=== PATIENT | female | born 2005 | race Asian ===

== ENCOUNTER 2025-09-05 11:44 | Observation (INO) ==
--- NOTE | 2025-09-05 12:03 | Emergency Department Note ---
History of Present Illness General Chief Complaint: Back Injury/Pain Stated Complaint: Back Injury/Pain Time Seen by Provider: 09/05/25 11:46 History of Present Illness Provider Complaint: back pain Onset (ago): hour(s) (844) 3 Duration: constant Location: lumbar spine Quality: + sharp, + dull, + crushing, + aching, + spasming and + throbbing Radiation: none Relieved By: + immobilization and + supine Exacerbated By: + movement Context: + other (Patient reports her back pain started after she sneezed); no turning/twisting, no bending, no fall, no trauma, no syncope, no history of kidney stones or no IV drug use Associated symptoms: no weakness, no fatigue, no syncope, no numbness, no difficulty walking, no loss of sensation in lower extremities, no increased urinary urgency, no increased urinary frequency, no fecal incontinence, no a change in bowel habits, no chills, no abdominal pain, no hematuria or no parasthesias Related Data Patient Confirmed : No Home Medications Medication Instructions Recorded Confirmed Type verapamil 40 mg tablet 40 mg PO DIRECTED PRN Increased 11/13/22 09/05/25 History Heart Rate cyclobenzaprine 5 mg tablet 5 mg PO TID PRN muscle spasm #30 09/05/25 Rx tabs ketorolac 10 mg tablet 10 mg PO BID PRN pain #10 tabs 09/05/25 Rx Allergies Allergy/AdvReac Type Severity Reaction Status Date / Time No Known Allergies Allergy Verified 11/13/22 21:06 Past Med/Surg History Problem List (Updated 09/05/25 @ 19:20 by Augie Alvarez DO) Low back pain Inability to walk Back pain (Acute) Medical History SVT (supraventricular tachycardia) Social History Smoking Status: Never smoker Preferred Language: Azeri Feels Safe at Home: Yes Physical Exam Vital Signs Vital Signs - 24 hr 09/05/25 11:33 09/05/25 13:35 09/05/25 16:05 Temperature 37.1 C 36.7 C Temperature Source Oral Oral Pulse Rate 72 69 Pulse Rate [Right Finger] 115 H Respiratory Rate 16 15 18 Respiratory Effort / Characteristics Non-Labored Non-Labored Spontaneous Respiratory Depth Normal Normal Respiratory Pattern Regular Regular Blood Pressure 122/78 116/74 Blood Pressure [Left Arm] 124/76 Blood Pressure Mean 92 Blood Pressure Mean [Left Arm] 92 Blood Pressure Position Lying Pulse Oximetry 100 100 99 Oxygen Delivery Method Room Air Room Air Sepsis Recent Fever Within 48 Hours No Sepsis New/Unexplained Change in Mental Status No Sepsis Action Taken by Nursing No Action Required 09/05/25 17:54 Temperature Temperature Source Pulse Rate Pulse Rate [Right Finger] 95 H Respiratory Rate 17 Respiratory Effort / Characteristics Non-Labored Spontaneous Respiratory Depth Normal Respiratory Pattern Regular Blood Pressure Blood Pressure [Left Arm] 124/84 Blood Pressure Mean Blood Pressure Mean [Left Arm] 97 Blood Pressure Position Pulse Oximetry 99 Oxygen Delivery Method Room Air Sepsis Recent Fever Within 48 Hours Sepsis New/Unexplained Change in Mental Status Sepsis Action Taken by Nursing Physical Exam GENERAL: oriented to person, place, and time. appears well-developed and well- nourished. HENT: Exam performed. - Head: Normocephalic and atraumatic. EYES: Conjunctivae and EOM are normal. Right eye exhibits no discharge. Left eye exhibits no discharge. No scleral icterus. NECK: Normal range of motion. Neck supple. No JVD present. CV: Normal rate, regular rhythm, normal heart sounds and intact distal pulses. There is no peripheral edema. Palpable radial pulses bue. PULM/CHEST: Effort normal and breath sounds normal. No respiratory distress. No stridor. no wheezes. no rales. ABD: The abdomen is soft. There is no tenderness. MUSC: No C, T, or L-spine tenderness. Palpable DP and PT pulses bilateral extremities. NEURO: Motor and sensation grossly intact. No saddle anesthesia or paresthesias. Strength 5/5 bilateral upper and lower extremities. SKIN: Skin is warm and dry. He is not diaphoretic. PSYCH: normal mood and affect. Behavior is normal. Judgment and thought content normal. Course Course 1146: The patient was evaluated in room D3. A complete history and physical exam was performed 1320: Vital signs stable. X-ray unremarkable. Patient denies any falls or traumas. No urinary incontinence or retention. No need for any further imaging. On reevaluation patient states that she is still having pain. Patient was ordered Tylenol, Toradol, and Flexeril. Patient will be discharged follow- up with PCP. Patient is requesting that she have at least 2 weeks off from school so she can deal with her backache. I did oblige patient to write her a school note for 2 weeks. DISCHARGE - Plan of care discussed with patient and questions answered. The patient was given both verbal and printed discharge instructions. The patient verbalized understanding and ability to comply. The patient is to seek outpatient follow up as noted in the discharge instructions. The patient verbalized understanding and ability to comply. The patient is discharged in stable condition. The patient was instructed to return for worsening symptoms. 1403: Informed by nursing that the patient is requesting to be admitted to the hospital. She states that her pain is too much. Patient states that she cannot sit in a wheelchair to be discharged home. Patient states she took an ambulance here. Patient is requesting to be admitted to the hospital overnight. I explained to the patient that there are no medical necessity to admit the patient. Patient is then requesting to have a ambulance take her back home as she states she cannot sit in a wheelchair or in a car. milk processing worker is discussing with the patient about options to get her home. 1421: Patient met with social media content manager Maria Victoria. Patient refusing to leave broke down crying stating she cannot sit in a chair and needs to be admitted to the hospital. Patient was explained that she cannot be transported home via an ambulance as she has requested and she began becoming more upset. Patient be moved to the C pod for further workup. 1826: Vital signs stable. Labs are unremarkable. Imaging shows mild disc bulge L4-L5 without neuroforaminal or spinal canal stenosis, no acute findings of the lumbar spine. I went and conveyed the patient's results to her and her friend at bedside. Patient is requesting a stretcher for home and for an ambulance to transport her home. Case management again met with the patient and explained to her that this would not be able to be arranged at this time. Patient states she does not feel safe going home. Friend at bedside states that they do not feel safe taking care of the patient at their home. She is refusing to sit up and states she would like to be admitted to the hospital for pain control until she can sit up. Patient states she is having anxiety issues. Patient was offered a psychiatric evaluation but states she is not sure if that is necessary at this time. Will contact hospitalist for possible admission. 1832: Discussed patient's case with [facility] hospitalist Dr. Alvarez who states he will evaluate the patient for admission. Administered Medications Discontinued Medications Acetaminophen (Acetaminophen 325 Mg Tab) 650 mg PO NOW STA Stop: 09/05/25 12:43 Last Admin: 09/05/25 13:15 Dose: 650 mg Documented By: pj Cyclobenzaprine HCl (Cyclobenzaprine Hcl 5 Mg Tab) 5 mg PO NOW STA Stop: 09/05/25 13:18 Last Admin: 09/05/25 13:29 Dose: 5 mg Documented By: pj Ketorolac Tromethamine (Ketorolac Tromethamine 60 Mg/2 Ml Vial) 15 mg IM NOW STA Stop: 09/05/25 13:18 Last Admin: 09/05/25 13:29 Dose: 15 mg Documented By: pj Ketorolac Tromethamine (Ketorolac Tromethamine 15 Mg/Ml Vial) 15 mg IV NOW STA Stop: 09/05/25 14:21 Last Admin: 09/05/25 15:19 Dose: Not Given Documented By: SANJAY Ketorolac Tromethamine (Ketorolac Tromethamine 15 Mg/Ml Vial) 15 mg IV NOW STA Stop: 09/05/25 14:57 Last Admin: 09/05/25 15:17 Dose: 15 mg Documented By: SANJAY Medical Decision Making Laboratory Data Attestation: I reviewed the patient's lab results. 09/05/25 14:36 09/05/25 14:36 Lab Results 09/05/25 Range/Units 14:36 WBC 5.23 (4.8-10.8) K/ul RBC 4.70 (4.20-5.40) M/uL Hgb 14.3 (12.0-16.0) g/dL Hct 41.2 (37.0-47.0) % MCV 87.7 (80.0-100.0) fL MCH 30.4 (25.0-34.0) pg MCHC 34.7 (32.0-36.0) g/dL RDW Std Deviation 39.2 (36.4-46.3) fL RDW Coeff of Fabby 12.1 (11.5-14.5) % Plt Count 172 (130-400) K/uL MPV 10.1 (9.4-12.4) fL Immature Gran % (Auto) 0.2 % Neut % (Auto) 76.7 % Lymph % (Auto) 14.1 % Stafford % (Auto) 7.1 % Eos % (Auto) 1.5 % Baso % (Auto) 0.4 % Neut # (Auto) 4.01 (1.40-6.50) K/uL Lymph # (Auto) 0.74 L (1.20-3.40) K/uL Stafford # (Auto) 0.37 (0.11-0.59) K/uL Eos # (Auto) 0.08 (0.00-0.50) K/uL Baso # (Auto) 0.02 (0.00-0.20) K/uL Immature Gran # (Auto) 0.01 (0.01-0.20) K/uL Sodium 138 (136-145) mmol/L Potassium 4.0 (3.5-5.1) mmol/L Chloride 105 (98-107) mmol/L Carbon Dioxide 27 (21-32) mmol/L Anion Gap 6 (3-11) BUN 10 (6-23) mg/dl Creatinine 0.56 L (0.6-1.2) mg/dl Est Cr Clr Drug Dosing 204.5 ml/min eGFR 133.08 BUN/Creatinine Ratio 17.9 (10-20) Glucose 116 H (70-99(Fasting)) mg/dl Calcium 8.9 (8.6-10.3) mg/dl Imaging Data Radiologist's Impression: Lumbar Spine X-Ray 09/05/25 11:58 XR lumbar spine min 4V routine HISTORY: 20 years-old Female back pain acute low back pain COMPARISON: None TECHNIQUE: 5 views of the lumbar spine FINDINGS: Developmental incomplete bony fusion involves the posterior elements of L5. No acute fracture, subluxation, spondylolysis or spondylolisthesis. The disc spaces appear generally well preserved. Unremarkable soft tissues. IMPRESSION: No acute osseous abnormality. ACT 112: Negative or not required by law. The above report was generated using voice recognition software. It may contain grammatical, syntax or spelling errors. Electronically signed by: Travis Turcios M.D. 09/05/2025 1:07 PM Lumbar Spine MRI 09/05/25 14:19 Lumbar spine MRI without IV contrast History: Back pain Comparison: None Technique: Sagittal T1-weighted, sagittal STIR, 3D volumetric axial and sagittal reconstructed T2-weighted images of the lumbar spine were obtained without intravenous contrast. Findings: There are 5 lumbar-type vertebrae assumed for the purposes of this dictation. The tip of the conus medullaris is at L1. Normal lumbar vertebral alignment. Mild degenerative disc height loss and loss of T2 signal at the L4-5 disc. . Normal marrow signal. On a level by level basis: T12-L1: No spinal canal or neuroforaminal stenosis. L1-2: No spinal canal or neuroforaminal stenosis. L2-3: No spinal canal or neuroforaminal stenosis. L3-4: No spinal canal or neuroforaminal stenosis. L4-5: Small posterior central disc bulge. No spinal canal or neuroforaminal stenosis. L5-S1: No spinal canal or neuroforaminal stenosis. Paraspinous tissues are within normal limits. Note: The following findings are common in the absence of low back pain and while we report their presence, they must be interpreted with caution and in the context of the clinical situation. (Reference -Biggvik et al, Spine 2001) Findings (prevalence in patients without low back pain) Disc degeneration (decreased T2 signal, height loss, bulge) (91%) Disc T2 - signal loss (83%) Disc height loss (56%) Disc bulge (64%) Disc protrusion (32%) Annular tear (38%). Impression: No acute finding of the lumbar spine. Mild disc height loss and loss of T2 signal with small posterior central disc bulge at L4-5 without neuroforaminal or spinal canal stenosis. Electronically signed by Beny Vidal 09-05-2025 5:57 PM [facility] Narrative 1146: The patient was evaluated in room D3. A complete history and physical exam was performed 1320: Vital signs stable. X-ray unremarkable. Patient denies any falls or traumas. No urinary incontinence or retention. No need for any further imaging. On reevaluation patient states that she is still having pain. Patient was ordered Tylenol, Toradol, and Flexeril. Patient will be discharged follow- up with PCP. Patient is requesting that she have at least 2 weeks off from school so she can deal with her backache. I did oblige patient to write her a school note for 2 weeks. DISCHARGE - Plan of care discussed with patient and questions answered. The patient was given both verbal and printed discharge instructions. The patient verbalized understanding and ability to comply. The patient is to seek outpatient follow up as noted in the discharge instructions. The patient verbalized understanding and ability to comply. The patient is discharged in stable condition. The patient was instructed to return for worsening symptoms. 1403: Informed by nursing that the patient is requesting to be admitted to the hospital. She states that her pain is too much. Patient states that she cannot sit in a wheelchair to be discharged home. Patient states she took an ambulance here. Patient is requesting to be admitted to the hospital overnight. I explained to the patient that there are no medical necessity to admit the patient. Patient is then requesting to have a ambulance take her back home as she states she cannot sit in a wheelchair or in a car. milk processing worker is discussing with the patient about options to get her home. 1421: Patient met with social media content manager Maria Victoria. Patient refusing to leave broke down crying stating she cannot sit in a chair and needs to be admitted to the hospital. Patient was explained that she cannot be transported home via an ambulance as she has requested and she began becoming more upset. Patient be moved to the C pod for further workup. 1826: Vital signs stable. Labs are unremarkable. Imaging shows mild disc bulge L4-L5 without neuroforaminal or spinal canal stenosis, no acute findings of the lumbar spine. I went and conveyed the patient's results to her and her friend at bedside. Patient is requesting a stretcher for home and for an ambulance to transport her home. Case management again met with the patient and explained to her that this would not be able to be arranged at this time. Patient states she does not feel safe going home. Friend at bedside states that they do not feel safe taking care of the patient at their home. She is refusing to sit up and states she would like to be admitted to the hospital for pain control until she can sit up. Patient states she is having anxiety issues. Patient was offered a psychiatric evaluation but states she is not sure if that is necessary at this time. Will contact hospitalist for possible admission. 1832: Discussed patient's case with [facility] hospitalist Dr. Alvarez who states he will evaluate the patient for admission. Impression & Plan Back pain Discharge Plan Visit Data Chief Complaint: Back Injury/Pain Stated Complaint: Back Injury/Pain ED Provider: Myke Kruse Discharge Problem: Back pain Patient Disposition: Being Evaluated by Hospitalist Condition: Fair Discharge Instructions Mine/Other Patient Handouts: ED Back Exercises, Lumbar Interventions: ED Discharge Assessment Last Done: 09/05/25 13:35 Forms Stand Alone Forms: Work/School Release (ED), [facility], Important Visit Information Prescriptions Prescriptions: New ketorolac 10 mg tablet 10 mg PO BID PRN (Reason: pain) Qty: 10 0RF cyclobenzaprine 5 mg tablet 5 mg PO TID PRN (Reason: muscle spasm) Qty: 30 0RF No Action verapamil 40 mg Tablet 40 mg PO DIRECTED PRN (Reason: Increased Heart Rate) Patient Comments: 09/05- no fill history unable to verify Referrals Referrals: [facility] [Primary Care Provider] - (Follow-up in 1-7 days.) Discharge Problem: Back pain Qualifiers: Back pain location: low back pain Chronicity: acute Back pain laterality: u nspecified Sciatica presence: unspecified whether sciatica present Qualified Code(s): M54.50 - Low back pain, unspecified
--- NOTE | 2025-09-05 13:08 | XRay Report ---
XR lumbar spine min 4V routine HISTORY: 20 years-old Female back pain acute low back pain COMPARISON: None TECHNIQUE: 5 views of the lumbar spine FINDINGS: Developmental incomplete bony fusion involves the posterior elements of L5. No acute fracture, sublux ation, spondylolysis or spondylolisthesis. The disc spaces appear generally well preserved. Unremarka ble soft tissues. IMPRESSION: No acute osseous abnormality. ACT 112: Negative or not required by law. The above report was generated using voice recognition software. It may contain grammatical, syntax o r spelling errors. Electronically signed by: Travis Turcios M.D. 09/05/2025 1:07 PM
[2025-09-05] MEDS: ACETAMINOPHEN 325 MG TAB PO STA (13:15)
[2025-09-05] MEDS: CYCLOBENZAPRINE HCL 5 MG TAB PO STA (13:29)
[2025-09-05] MEDS: KETOROLAC TROMETHAMINE 60 MG/2 ML VIAL IM STA (13:29)
[2025-09-05 14:51] LABS: Hematocrit (blood only) 41.2 % (37.0-47.0); Hemoglobin 14.3 g/dL (12.0-16.0); Immature Granulocytes # (auto) 0.01 K/uL (0.01-0.20); Immature Granulocytes % (auto) 0.2 %; Mean Corpuscular Hemoglobin 30.4 pg (25.0-34.0); Mean Corpuscular Volume 87.7 fL (80.0-100.0); Platelet Count 172 K/uL (130-400); RDW Standard Deviation 39.2 fL (36.4-46.3); Red Blood Count 4.70 M/uL (4.20-5.40); White Blood Count 5.23 K/ul (4.8-10.8)
[2025-09-05 15:17] LABS: Anion Gap 6.0 (3-11); Blood Urea Nitrogen 10.0 mg/dl (6-23); Calcium 8.9 mg/dl (8.6-10.3); Carbon Dioxide 27.0 mmol/L (21-32); Chloride 105.0 mmol/L (98-107); Creatinine Clr Calc Pharmacy 204.5 ml/min; Glucose 116.0 mg/dl (70-99(Fasting)); Potassium 4.0 mmol/L (3.5-5.1); Sodium 138.0 mmol/L (136-145)
[2025-09-05] MEDS: KETOROLAC TROMETHAMINE 15 MG/ML VIAL IV STA ×2 (15:17→15:19)
--- NOTE | 2025-09-05 17:57 | Magnetic Resonance Report ---
Lumbar spine MRI without IV contrast History: Back pain Comparison: None Technique: Sagittal T1-weighted, sagittal STIR, 3D volumetric axial and sagittal reconstructed T2-weighted images of the lumbar spine were obtained without intravenous contrast. Findings: There are 5 lumbar-type vertebrae assumed for the purposes of this dictation. The tip of the conus medullaris is at L1. Normal lumbar vertebral alignment. Mild degenerative disc height loss and loss of T2 signal at the L4-5 disc. . Normal marrow signal. On a level by level basis: T12-L1: No spinal canal or neuroforaminal stenosis. L1-2: No spinal canal or neuroforaminal stenosis. L2-3: No spinal canal or neuroforaminal stenosis. L3-4: No spinal canal or neuroforaminal stenosis. L4-5: Small posterior central disc bulge. No spinal canal or neuroforaminal stenosis. L5-S1: No spinal canal or neuroforaminal stenosis. Paraspinous tissues are within normal limits. Note: The following findings are common in the absence of low back pain and while we report their presence, they must be interpreted with caution and in the context of the clinical situation. (Reference -Jarvik et al, Spine 2001) Findings (prevalence in patients without low back pain) Disc degeneration (decreased T2 signal, height loss, bulge) (91%) Disc T2 - signal loss (83%) Disc height loss (56%) Disc bulge (64%) Disc protrusion (32%) Annular tear (38%). Impression: No acute finding of the lumbar spine. Mild disc height loss and loss of T2 signal with small posterior central disc bulge at L4-5 without neuroforaminal or spinal canal stenosis. Electronically signed by Beny Vidal 09-05-2025 5:57 PM
--- NOTE | 2025-09-05 19:19 | History & Physical Report ---
Date of Service September 05, 2025 Assessment & Plan (1) Inability to walk: (2) Low back pain: Plan In summary this is a 20-year-old female who presents with low back pain after sneezing earlier on the same day of presentation. She refuses to attempt ambulation due to significant discomfort involving her low back describing it as a large amount of "pressure".From a neurological standpoint there are no additional injuries or consequences of her event earlier today. The patient is relatively argumentative with regard to her plan of care, demanding certain things be done or not done. Unfortunately, given the patient's inability to attempt ambulation given this reported "pressure", she cannot be safely discharged from the emergency department. Subsequently, she will be admitted for continued care as detailed below. Start acetaminophen 1000 mg p.o. every 8 hours Start Toradol 30 mg IV every 6 hours, to be continued through 09/09 or upon discharge, whichever occurs first Start cyclobenzaprine 5 mg p.o. as needed PT/OT consulted History of Present Illness Chief Complaint: Low back pain Primary Care Provider: [facility] Ms. Mantilla is a 20-year-old female without current chronic medical conditions who presented to the ED after sneezing resulting in sudden onset back pain. This was not associated with any paresthesia, loss of bowel or bladder continence, syncope, chest pain, palpitations, or any other symptoms. She reports inability to ambulate due to a large amount of "pressure" in the low back that occurs when being "vertical". Allergies Allergy/AdvReac Type Severity Reaction Status Date / Time No Known Allergies Allergy Verified 11/13/22 21:06 Home Medications Medication Instructions Recorded Confirmed Type verapamil 40 mg tablet 40 mg PO DIRECTED PRN Increased 11/13/22 09/05/25 History Heart Rate cyclobenzaprine 5 mg tablet 5 mg PO TID PRN muscle spasm #30 09/05/25 Rx tabs ketorolac 10 mg tablet 10 mg PO BID PRN pain #10 tabs 09/05/25 Rx Past Med/Surg History Problem List (Updated 09/05/25 @ 19:20 by Augie Alvarez DO) Low back pain Inability to walk Back pain (Acute) Medical History SVT (supraventricular tachycardia) Social History Smoking Status: Never smoker Preferred Language: Indonesian Feels Safe at Home: Yes Review of Systems Review of Systems: Review of systems including cardiovascular, pulmonary, musculoskeletal, neurologic, gastrointestinal, genitourinary were unremarkable. Physical Exam Physical Exam: General: Young adult female in no acute distress Vital Signs: Reviewed HEENT: Moist mucous membranes Pulmonary: Symmetric chest wall excursion without restriction Cardiovascular: Regular rate and rhythm with left radial pulse 2+ Genitourinary: There are Musculoskeletal: Very mild reproducible pain in the midline lumbar spine without radiation; surrounding spinal musculature is without hypertonicity, spasticity, significant tenderness with palpation; there is no step-off lesion palpable involving the lumbosacral spine Neurologic: Cranial nerves II through XII grossly intact; straight leg test involving the bilateral lower extremities was unremarkable Results & Data Results & Data Vital Signs (Past 12 Hours) Vital Signs Temp Pulse Pulse Resp BP BP Pulse Ox 09/05/25 17:54 95 H 17 124/84 99 09/05/25 16:05 115 H 18 124/76 99 09/05/25 13:35 36.7 C 69 15 116/74 100 09/05/25 11:33 37.1 C 72 16 122/78 100 O2 Del Method 09/05/25 17:54 Room Air 09/05/25 16:05 Room Air 09/05/25 13:35 Room Air 09/05/25 11:33 Diagnostic Findings Small posterior central disc bulge at L4-L5 without neuroforaminal or spinal canal stenosis Code Status & VTE Plan Code Status Full code PG Care Time/CCT Total # of Minutes Spent Total Time Spent with Patient: Total time spent is greater than 50% in coordination of care (as documented) at patient's floor/unit and/or counseling patient: Coding Level of Care Code 24769 INT INP/OBS CARE 1/40MIN Diagnoses Inability to walk R26.2 Acute right-sided low back pain without sciatica M54.50 Chronicity: acute Back pain laterality: right Sciatica presence: without sciatica (2) Low back pain Chronicity: acute Back pain laterality: right Sciatica presence: without sciatica Qualified Code(s): M54.50 - Low back pain, unspecified
[2025-09-05] MEDS: KETOROLAC 30 MG/ML VIAL IV SCH (21:36)
[2025-09-05] MEDS: CYCLOBENZAPRINE HCL 10 MG TAB PO PRN (21:36)
[2025-09-05] MEDS: ACETAMINOPHEN 500 MG TAB PO SCH (21:36)
[2025-09-05 22:49] VITALS: RESP 16
[2025-09-06 07:03] VITALS: O2SAT 97
[2025-09-06] MEDS: MAGNESIUM SULFATE / D5W 1 GM/100 ML BAG IV SCH (10:38)
[2025-09-06] MEDS: DICLOFENAC SOD 1% GEL 100 GM TUBE EXT SCH (12:54)
[2025-09-06 14:59] VITALS: BP 113/68; PULSE 83; TEMP 98.2
--- NOTE | 2025-09-06 17:49 | Billing Data ---
Date of Service September 06, 2025 Coding Level of Care Code 27394 INP/OBS DISCH >30 MIN
--- NOTE | 2025-09-06 17:49 | Discharge Summary ---
Discharge Summary Date of Service September 06, 2025 Principal Dx & Hospital Course #1 = Principal Diagnosis (1) Low back pain: Plan #lumbosacral strain - history and physical combined with lack of other worrisome findings on labs or diagnostics, make lumbosacral strain the diagnosis both based on how her symptoms and exam fit, and based on the fact that nothing else ominous appears to be at play in spite of a rather extensive workup including lumbar spine MRI - OMT as above; taught stretches that would mimic post isometric muscle relaxation OMT for piriformis - Voltaren gel to right piriformis 4 times daily - encouraged movementpatient was initially fairly adamant that she should just lay stillnoting this happen to her once in the pastin discussion with admitting provider to clarify further, apparently at that time she basically laid in bed for 3 weeksdiscussed gelling phenomenon in depth and repeatedly discussed the importance of movement. - Utilized Valium x 1 and mag sulfate x 4 g IV as muscle relaxants in the hospital, over the course of the day while her symptoms persisted, whenever I followed up in the afternoon she was feeling good enough that she actively asked to be discharged. In discussion she was a little bit worried about moving around without something to hold onto, and after discussion she felt like a walker would provide an adequate safety net. - Safe/stable for home Notes For Next Care Provider Medication Changes From Visit Voltaren gel to right piriformis region, Tylenol or ibuprofen as needed Admission HPI Per Admitting Provider Ms. Mantilla is a 20-year-old female without current chronic medical conditions who presented to the ED after sneezing resulting in sudden onset back pain. This was not associated with any paresthesia, loss of bowel or bladder continence, syncope, chest pain, palpitations, or any other symptoms. She reports inability to ambulate due to a large amount of "pressure" in the low back that occurs when being "vertical". Discharge Exam awake and alertinitially laying very still and fairly anxious about the pain to the point where she would not even move to show me where the pain was, choosing instead to describe it until I noted that I really needed her to show me where she was hurting to better understand what her diagnosis was. Slow antalgic movements but quite capable. In general she is otherwise in no distress. HEENT normocephalic atraumatic mucous membranes moist. Breathing unlabored no accessory muscle use good effort. Skin without rashes pallor or icterus. Musculoskeletal shows muscles in the right piriformis region to be high tone, tender, decreased range of motionLAS and post isometric relaxation done with some improvement. Her right SI joint is tender and reproduces her pain almost exactly. Neuro with no focal deficits no motor weakness, no notable sensory deficits. Skin without rashes pallor or icterus. Updated Medication List Medication Instructions Recorded Confirmed Type verapamil 40 mg tablet 40 mg PO DIRECTED PRN Increased 11/13/22 09/05/25 History Heart Rate diclofenac sodium 1 % topical gel 4 g EXT QID #100 grams 09/06/25 Rx (Voltaren Arthritis Pain) Hospital Stay Data Diagnostic Imagining Performed 09/05/25 14:19 MRI Lumbar Spine [MR lumbar spine wo con] Stat Pending Results Patient Have Any Pending Studies at Discharge: Yes Discharge Instructions Given to Patient (Per Discharging Provider) Back painyour back pain appears entirely due to a musculoskeletal lumbosacral strain. What appears to have happened, as it is often the case, is that your piriformis muscle (the muscle that ties your sacrum to your hip) probably got torqued when you sneezed, and reflexively went into spasm. When our piriformis muscle goes into spasm, this usually creates much more SI joint pain and low back pain then it does buttock pain in the region of the piriformislargely because the way our piriformis ties to our sacrum, whenever it goes into spasm, it we will pull her sacrum over and jam up that SI joint and turned our lumbar spine someand our brain largely perceives that pain "upstream" from the muscle spasm far more acutely than the pain of the spasm itself. That said, the piriformis muscle tightness is generally "the Nelson" of the problemand getting the muscle looser will help you get better faster. - It is usually important to keep moving. Muscles do what is called "gelling"when the muscle is tight, and it is not moving, it just gets tighter and makes it hurt more to move. Even though it hurts to move, do as much as you can and move frequently so that the gelling phenomenon impacts you and slows your recovery as little as possible - dynamic stretching can help loosen this faster as well. As I helped you do earlier, and as I demonstrated this afternoon, when you are laying on your back, pull your right knee to your chest and then move it across your body to the l eft. While holding your leg still, try to rotate your knee back out to the right but do not let it move. Hold it still like this for about 5 seconds of contraction, and then relax the muscle and stretch your knee further to your chest and further to the left across your body. Do about 5 repetitions of this at least twice a day, if not more - use the Voltaren gel (topical diclofenac) across the region of your right piriformis muscle 4 times a day. It will not necessarily help right away, but typically what we find is when people use it 4 times a day, after about 2 or 3 days, it usually starts to help a good deal. I would use this until things are feeling noticeably better - pain medications do not help a lot with this because it is much more of a muscle spasm and torqued joint problem, but you can use Tylenol up to 500 mg up to every 6 hours (2000 mg in a day max), and ibuprofen up to 600 mg every [address]'t drive today due to the potentially sedating effects of the medications you were given today in the hospital Total Time Total Time Spent Total Time Spent (In Minutes): >30
== END 2025-09-06 18:23 | disposition home or self-care (01) ==
LOC: EDINP 11:44 → ED 11:44 → SUATTDRO 19:22 → 3N 21:18